=== PATIENT | female | born 1975 | race Caucasian/White ===

== ENCOUNTER 2016-10-09 10:49 | Day surgery (SDC) | payer MEDICAID ==
[2016-10-09] MEDS ORDERED: Bupivacaine 0.5% 50 ML MDV ONE (10:52)
[2016-10-09] MEDS ORDERED: Lidocaine 1% with EPINEPHrine 1:100,000 50 ML MDV ONE (10:53)
[2016-10-09] MEDS ORDERED: Sodium Chloride 0.9% 1,000 ML IV SCH (11:15)
[2016-10-09] MEDS ORDERED: Propofol 200 MG/20 ML SDV ONE ×3 (12:28→12:44)
[2016-10-09] MEDS ORDERED: fentaNYL 100 MCG/2 ML SDV ONE (12:28)
[2016-10-09] MEDS ORDERED: Midazolam 1 MG/ML 2 ML SDV ONE (12:29)
[2016-10-09] MEDS ORDERED: fentaNYL 250 MCG/5 ML SDV ONE (12:32)
[2016-10-09] MEDS ORDERED: Acetaminophen/HYDROcodone 325-5 MG Tab PO ONE (14:00)
--- NOTE | 2016-10-09 14:44 | CR ---
OR [id number] Filter HISTORY: INSERTION OF CENTRAL VENOUS CATHETER FINDINGS: Fluoroscopy was provided during central line placement. 3 digital fluoroscopic spot images were obtained. Central venous catheter enters from a right subclavian approach. Tip is just enterin g the SVC. No complication can be seen on these images. IMPRESSION: Fluoroscopy during central line placement. The tip is just entering the superior vena ca va on images obtained.
[2016-10-09 15:02] VITALS: BP 116/72
--- NOTE | 2016-10-10 08:28 | OR ---
DATE OF PROCEDURE: 10/09/2016 PROCEDURE: Port-A-Cath placement, right subclavian vein. INDICATIONS: A 40-year-old female with known cancer requiring chemotherapy. Risks, benefits, alternatives, limitations including, but not limited to, infection, bleeding, and pneumothorax were explained to the patient. She wishes to proceed. PREOPERATIVE DIAGNOSIS: Carcinoma, breast. POSTOPERATIVE DIAGNOSIS: Carcinoma, breast. COMPLICATIONS: None. CIRCULAR KNIFE CUTTER MACHINE: None. ANESTHESIA: MAC. PROCEDURE IN DETAIL: The patient was placed in the supine position. The right chest was prepped and draped. Using a micropuncture kit, the right subclavian vein was accessed on approximately the 3rd pass. This was very lateral compared to the typical anatomical location. Nonetheless, the micropuncture kit was able to be used. This was then exchanged with a wire. Lidocaine was used to anesthetize the skin and a pocket would be created. The pocket was created in a standard fashion using Metzenbaum scissors. After this, the overlay sheath was then advanced on the wire. The tubing was then placed into the superior vena cava. This was then cut to length and attached to the PowerPort. This was then sutured in with multiple 3-0 Vicryl's in interrupted fashion. At no point did the tubing or associated ports contact skin. The wound was then closed with 2 layers of 3-0 Vicryl and 4-0 Vicryl in interrupted running fashion. A Whitaker needle was used to retest the port which was functioning well. Dermabond was applied. Of note, this port is ready to use in the .. Vineet Crane MD /[id number]
== END 2016-10-09 15:06 | disposition home or self-care (01) ==
LOC: JP.SDS 10:49
PROVIDERS: ATTEND Surgery
DX: Z51.11 Encounter for antineoplastic chemotherapy (principal); C50.112 Malignant neoplasm of central portion of left female breast
CPT/HCPCS: 36561; A9270; C1788; C1894; J1642; J2250; J2704; J3010; J7040

== ENCOUNTER 2016-10-16 07:13 | Day surgery (SDC) | payer MEDICAID ==
[~2016-10-16 07:13] MED LIST: Bupivacaine 0.5% 50 ML MDV ONE; Lidocaine 1% with EPINEPHrine 1:100,000 50 ML MDV ONE
[2016-10-16] MEDS ORDERED: Sodium Chloride 0.9% 1,000 ML IV SCH (07:30)
[2016-10-16] MEDS ORDERED: ceFAZolin 2 GM in Sodium Chloride 0.9% 50 ML IV ONE (08:00)
[2016-10-16] MEDS ORDERED: ceFAZolin 2 GM in Premix Bag 1 BAG IV ONE (08:00)
[2016-10-16] MEDS ORDERED: fentaNYL 100 MCG/2 ML SDV ONE (08:19)
[2016-10-16] MEDS ORDERED: Propofol 200 MG/20 ML SDV ONE ×2 (08:19→08:32)
[2016-10-16] MEDS ORDERED: Midazolam 1 MG/ML 2 ML SDV ONE (08:19)
[2016-10-16] MEDS ORDERED: Ondansetron 4 MG/2 ML SDV ONE (08:48)
[2016-10-16 10:10] VITALS: BP 120/77
--- NOTE | 2016-10-17 08:23 | OR ---
DATE OF PROCEDURE: 10/16/2016 PROCEDURE PERFORMED: Biopsy of left axillary lymph node suspicious for malignancy, ultrasound-guided vacuum-assisted. COMPLICATIONS: None. CORDWOOD CUTTER HELPER: None. ANESTHESIA: MAC/local. INDICATIONS: A 41-year-old female requiring evaluation of concerning lymph node related to a breast malignancy. Risks, benefits, alternatives, and limitations including, but not limited to infection, bleeding, false-positives, false-negatives, and requirement for re- biopsy were explained to the patient, and they wished to proceed. Of note, due to the patient's significant anxiety issues, the patient underwent MAC anesthesia, as she would be unable to remain still for the typical ultrasound-guided biopsy. PATHOLOGY: 14-gauge ultrasound-guided core biopsies of the 2-cm lymph node of concern. DESCRIPTION OF PROCEDURE: The patient was placed in right lateral decubitus position. Using the previous Port-A-Cath, the patient was anesthetized, prepped and draped. The concerning lymph node was readily identified by the engineering specialist technician. The skin was anesthetized with lidocaine and a darshana was created in the skin. The tract was then further anesthetized with the 1% lidocaine. Once this was anesthetized, the 14-gauge ultrasound- guided breast biopsy gun was introduced, and the node was biopsied directly in the middle. Multiple images were taken of this. The specimen was removed, and there was felt to be a good core. This was repeated a second time. After this, a clip was placed into the lymph node. Of note, there were no other enlarged lymph nodes on ultrasound. Direct pressure was held for 5 minutes and Dermabond was applied. The patient tolerated the procedure well. Vineet Crane MD /[id number]
== END 2016-10-16 10:30 | disposition home or self-care (01) ==
LOC: JP.SDS 07:13
PROVIDERS: ATTEND Surgery
DX: N63 Unspecified lump in breast (principal)
CPT/HCPCS: 19083; 76998; J0690; J1642; J2250; J2405; J2704; J3010; J7040; J7050; 88305; 88342

== ENCOUNTER 2016-11-27 16:11 | Inpatient (IN) | payer MEDICAID ==
[2016-11-27] MEDS ORDERED: LORazepam 2 MG/ML MDV IVPUSH ONE (19:42)
[2016-11-27] MEDS ORDERED: Ketorolac 30 MG/ML SDV IVPUSH ONE (19:45)
--- NOTE | 2016-11-27 19:53 | EDM.PDOC ---
ED HPI GENERAL MEDICAL PROBLEM - General Chief Complaint: General Stated Complaint: BLOOD INFECTION Time Seen by Provider: 11/27/16 17:37 Source of Information: Reports: Patient History Limitations: Reports: No Limitations - History of Present Illness INITIAL COMMENTS - FREE TEXT/NARRATIVE: This lady was seen in clinic in [place] in follow-up for breast cancer. She complained of chills and sweats feeling dizzy yesterday. She thought maybe she might of had some heat stroke symptoms yesterday it's been 2 weeks since her last dose of chemotherapy. She's had 3 rounds she's supposed to have her fourth round tomorrow. She denied vomiting or diarrhea. She does have a cough. She had a sore throat a few days ago. She had a fever in clinic. The doctor did blood cultures on her and then sent her to the hospital for evaluation however he did not send any of the labs that were done. 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 Psychiatric History: Reports: Anxiety, Panic Attack Endocrine/Metabolic History: Reports: Obesity/BMI 30+ Oncologic (Cancer) History: Reports: Breast - Past Surgical History HEENT Surgical History: Reports: Other (See Below) Other HEENT Surgeries/Procedures: Lazy eye surgery Endocrine Surgical History: Reports: None Musculoskeletal Surgical History: Reports: None Oncologic Surgical History: Reports: Biopsy of Breast Social & Family History - Tobacco Use Smoking Status *Q: Never Smoker Years of Tobacco use: 20 Packs/Tins Daily: 1 Second Hand Smoke Exposure: No - Caffeine Use Caffeine Use: Reports: Coffee - Alcohol Use Days Per Week of Alcohol Use: 2 Number of Drinks Per Day: 3 Total Drinks Per Week: 6 - Recreational Drug Use Recreational Drug Use: No ED ROS GENERAL - Review of Systems Review Of Systems: See Below Constitutional: Reports: Fever, Chills HEENT: Reports: Throat Pain Respiratory: Reports: Cough Cardiovascular: Reports: No Symptoms Endocrine: Reports: No Symptoms GI/Abdominal: Reports: No Symptoms : Reports: No Symptoms ED EXAM, GENERAL - Physical Exam Exam: See Below Exam Limited By: No Limitations General Appearance: Alert, WD/WN Eye Exam: Bilateral Eye: Normal Inspection Ears: Normal TMs (Partially visible TMs are normal) Nose: Normal Inspection Throat/Mouth: Normal Inspection Head: Atraumatic Neck: Normal Inspection Respiratory/Chest: Lungs Clear, Other Cardiovascular: Normal Peripheral Pulses, Regular Rate, Rhythm (She has a Port-A -Cath in the right upper chest), No Murmur GI/Abdominal: Soft, Non-Tender Back Exam: Normal Inspection Extremities: Normal Inspection Neurological: Alert, Oriented Psychiatric: Normal Affect Skin Exam: Warm, Dry Course - Vital Signs Last Recorded V/S: Last Vital Signs Temp 38.1 C 11/27/16 16:29 Pulse 138 H 11/27/16 16:29 Resp 14 11/27/16 16:29 BP 118/72 11/27/16 16:29 Pulse Ox 97 11/27/16 16:29 - Orders/Labs/Meds Orders: Active Orders 24 hr Category Date Time Status Chest 2V [CR] Urgent Exams 11/27/16 17:38 Taken CULTURE STREP A CONFIRMATION [] Stat Lab 11/27/16 19:13 Results STREP SCRN A RAPID W CULT CONF [] Stat Lab 11/27/16 19:13 Results Sodium Chloride 0.9% [Normal Saline] 1,000 ml Med 11/27/16 19:45 Active IV ASDIRECTED Medication Orders Sodium Chloride (Normal Saline) 1,000 mls @ 125 mls/hr IV ASDIRECTED CY Labs: Laboratory Tests 11/27/16 11/27/16 11/27/16 Range/Units 17:38 17:38 17:38 WBC 8.0 (4.5-11.0) K/uL RBC 2.87 L (3.30-5.50) M/uL Hgb 8.8 L (12.0-15.0) g/dL Hct 26.2 L (36.0-48.0) % MCV 91 (80-98) fL MCH 31 (27-31) pg MCHC 34 (32-36) % Plt Count 200 (150-400) K/uL Add Manual Diff Yes Neutrophils % (Manual) 49 (36-66) % Band Neutrophils % 25 H (5-11) % Lymphocytes % (Manual) 12 L (24-44) % Monocytes % (Manual) 10 H (2-6) % Basophils % (Manual) 1 (0-1) % Blast Cells % 2 % Sodium 133 L (140-148) mmol/L Potassium 3.9 (3.6-5.2) mmol/L Chloride 98 L (100-108) mmol/L Carbon Dioxide 28 (21-32) mmol/L Anion Gap 10.9 (5.0-14.0) mmol/L BUN 10 (7-18) mg/dL Creatinine 0.9 (0.6-1.0) mg/dL Est Cr Clr Drug Dosing 84.66 mL/min Estimated GFR (MDRD) > 60 (>60) Glucose 104 (74-106) mg/dL Lactic Acid 0.9 (0.4-2.0) mmol/L Calcium 9.0 (8.5-10.1) mg/dL Total Bilirubin 0.4 (0.2-1.0) mg/dL AST 28 (15-37) U/L ALT 33 (12-78) U/L Alkaline Phosphatase 42 L (46-116) U/L Total Protein 7.1 (6.4-8.2) g/dL Albumin 3.0 L (3.4-5.0) g/dL Globulin 4.1 H (2.3-3.5) g/dL Albumin/Globulin Ratio 0.7 L (1.2-2.2) Urine Color Urine Appearance Urine pH (4.5-8.0) Ur Specific [place] (1.008-1.030) Urine Protein (NEGATIVE) mg/dL Urine Glucose (UA) (NEGATIVE) mg/dL Urine Ketones (NEGATIVE) mg/dL Urine Occult Blood (NEGATIVE) Urine Nitrite (NEGATIVE) Urine Bilirubin (NEGATIVE) Urine Urobilinogen (NORMAL) mg/dL Ur Leukocyte Esterase (NEGATIVE) Urine RBC (0-5) Urine WBC (0-5) Ur Epithelial Cells Amorphous Sediment Urine Bacteria Urine Mucus 11/27/16 Range/Units 19:13 WBC (4.5-11.0) K/uL RBC (3.30-5.50) M/uL Hgb (12.0-15.0) g/dL Hct (36.0-48.0) % MCV (80-98) fL MCH (27-31) pg MCHC (32-36) % Plt Count (150-400) K/uL Add Manual Diff Neutrophils % (Manual) (36-66) % Band Neutrophils % (5-11) % Lymphocytes % (Manual) (24-44) % Monocytes % (Manual) (2-6) % Basophils % (Manual) (0-1) % Blast Cells % % Sodium (140-148) mmol/L Potassium (3.6-5.2) mmol/L Chloride (100-108) mmol/L Carbon Dioxide (21-32) mmol/L Anion Gap (5.0-14.0) mmol/L BUN (7-18) mg/dL Creatinine (0.6-1.0) mg/dL Est Cr Clr Drug Dosing mL/min Estimated GFR (MDRD) (>60) Glucose (74-106) mg/dL Lactic Acid (0.4-2.0) mmol/L Calcium (8.5-10.1) mg/dL Total Bilirubin (0.2-1.0) mg/dL AST (15-37) U/L ALT (12-78) U/L Alkaline Phosphatase (46-116) U/L Total Protein (6.4-8.2) g/dL Albumin (3.4-5.0) g/dL Globulin (2.3-3.5) g/dL Albumin/Globulin Ratio (1.2-2.2) Urine Color Yellow Urine Appearance Cloudy Urine pH 5.0 (4.5-8.0) Ur Specific [place] 1.020 (1.008-1.030) Urine Protein Negative (NEGATIVE) mg/dL Urine Glucose (UA) Normal (NEGATIVE) mg/dL Urine Ketones Negative (NEGATIVE) mg/dL Urine Occult Blood Negative (NEGATIVE) Urine Nitrite Negative (NEGATIVE) Urine Bilirubin Negative (NEGATIVE) Urine Urobilinogen Normal (NORMAL) mg/dL Ur Leukocyte Esterase Negative (NEGATIVE) Urine RBC 0-5 (0-5) Urine WBC 0-5 (0-5) Ur Epithelial Cells Few Amorphous Sediment Not seen Urine Bacteria Many Urine Mucus Not seen Meds: Medications Generic Name Dose Route Start Last Admin Trade Name Freq PRN Reason Stop Dose Admin Sodium Chloride 1,000 mls @ 125 mls/hr 11/27/16 19:45 Normal Saline IV ASDIRECTED CY Discontinued Medications Generic Name Dose Route Start Last Admin Trade Name Jewels PRN Reason Stop Dose Admin Ketorolac Tromethamine 30 mg 11/27/16 19:45 Toradol IVPUSH 11/27/16 19:46 ONETIME ONE Lorazepam 1 mg 11/27/16 19:42 Ativan IVPUSH 11/27/16 19:43 ONETIME ONE - Radiology Interpretation Free Text/Narrative:: Chest x-ray showed no evidence of infiltrate Departure - Departure Time of Disposition: 19:52 Disposition: Admitted As Inpatient 68 Condition: Fair Clinical Impression: Fever - Discharge Information Forms: ED Department Discharge - My Orders Last 24 Hours: My Active Orders 11/27/16 17:38 Chest 2V [CR] Urgent 11/27/16 19:13 CULTURE STREP A CONFIRMATION [RM] Stat STREP SCRN A RAPID W CULT CONF [RM] Stat - Assessment/Plan Last 24 Hours: My Active Orders 11/27/16 17:38 Chest 2V [CR] Urgent 11/27/16 19:13 CULTURE STREP A CONFIRMATION [RM] Stat STREP SCRN A RAPID W CULT CONF [RM] Stat
[2016-11-27] MEDS: Sodium Chloride 0.9% 1,000 ML IV SCH (20:12)
[2016-11-27] MEDS ORDERED: Azithromycin 500 MG in Sodium Chloride 0.9% 250 ML IV SCH (20:44)
[2016-11-27] MEDS ORDERED: Morphine 2 MG/ML Syringe IVPUSH PRN (20:44)
[2016-11-27] MEDS ORDERED: LORazepam 2 MG/ML MDV IV PRN (20:44)
[2016-11-27] MEDS ORDERED: cefTRIAXone 1 GM in Sodium Chloride 0.9% 50 ML IV SCH (20:44)
[2016-11-27] MEDS ORDERED: Zolpidem 5 MG Tab PO PRN (20:44)
[2016-11-27] MEDS ORDERED: Albuterol 0.083% 2.5 MG/3 ML Neb Soln NEB PRN (20:44)
[2016-11-27] MEDS ORDERED: Acetaminophen 325 MG Tab PO PRN (20:44)
[2016-11-27] MEDS ORDERED: oxyCODONE 5 MG Tab PO PRN (20:44)
[2016-11-27] MEDS ORDERED: Codeine/guaiFENesin 100mg-10 MG/5 ML Syrup 10 ML Cup PO PRN (20:44)
[2016-11-27] MEDS ORDERED: LORazepam 2 MG/ML MDV IVPUSH PRN (20:44)
[2016-11-27] MEDS ORDERED: Bisacodyl 5 MG Tab PO PRN (20:44)
[2016-11-27] MEDS ORDERED: Albuterol/Ipratropium 3.0-0.5 MG/3 ML Neb Soln NEB PRN (20:44)
[2016-11-27] MEDS ORDERED: Ondansetron 4 MG Tab.DIS PO PRN (20:44)
[2016-11-27] MEDS ORDERED: Docusate Sodium 100 MG Cap PO PRN (20:44)
[2016-11-27] MEDS ORDERED: Dexamethasone 4 MG Tab PO SCH (21:00)
[2016-11-27] MEDS: Calcium Carbonate 500 MG Tab.Chew PO PRN (22:55)
--- NOTE | 2016-11-27 23:44 | PCM.HP ---
H&P History of Present Illness - General Date of Service: 11/27/16 Admit Problem/Dx: Admission Diagnosis/Problem Admission Diagnosis/Problem Cough Source of Information: Patient, Family () History Limitations: Reports: No Limitations - History of Present Illness Initial Comments - Free Text/Narative: Fever; This lady was seen in clinic in [place] in follow-up for breast cancer. She complained of chills and sweats feeling dizzy yesterday. She thought maybe she might of had some heat stroke symptoms yesterday it's been 2 weeks since her last dose of chemotherapy. She's had 3 rounds she's supposed to have her fourth round tomorrow. She denied vomiting or diarrhea. She does have a cough. She had a sore throat a few days ago. She had a fever in clinic. The doctor did blood cultures on her and then sent her to the hospital for evaluation however he did not send any of the labs that were done. Onset of Symptoms: Reports: Gradual Duration of Symptoms: Reports: Day(s):, Getting Worse Location: Reports: Generalized Quality: Reports: Sharp, Throbbing Severity: Moderate Improves with: Reports: Medication Worsens with: Reports: None Context: Reports: Other (chemo therapy for breast cancer) Associated Symptoms: Reports: Cough, Fever/Chills, Nausea/Vomiting - Related Data Allergies/Adverse Reactions: Allergies Allergy/AdvReac Type Severity Reaction Status Date / Time No Known Allergies Allergy Verified 11/27/16 16:35 Home Medications: Home Meds Ibuprofen 200 mg PO Q6HR PRN 10/09/16 [History] Dexamethasone 8 mg PO BID 10/14/16 [History] Prochlorperazine Maleate [Compazine] 10 mg PO Q6H PRN 10/14/16 [History] Past Medical History HEENT History: Reports: Impaired Vision 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: , 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 Psychiatric History: Reports: Anxiety, Panic Attack Endocrine/Metabolic History: Reports: Obesity/BMI 30+ Oncologic (Cancer) History: Reports: Breast - Infectious Disease History Infectious Disease History: Reports: Chicken Pox - Past Surgical History HEENT Surgical History: Reports: Other (See Below) Other HEENT Surgeries/Procedures: Lazy eye surgery Endocrine Surgical History: Reports: None Musculoskeletal Surgical History: Reports: None Oncologic Surgical History: Reports: Biopsy of Breast Social & Family History - Tobacco Use Smoking Status *Q: Former Smoker Years of Tobacco use: 19 Packs/Tins Daily: 1 Used Tobacco, but Quit: Yes Month Tobacco Last Used: October Second Hand Smoke Exposure: No - Caffeine Use Caffeine Use: Reports: None - Alcohol Use Days Per Week of Alcohol Use: 2 Number of Drinks Per Day: 3 Total Drinks Per Week: 6 - Recreational Drug Use Recreational Drug Use: No - Living Situation & Occupation Living situation: Reports: Occupation: Disabled ( to [employer], no children , lives in [facility]) H&P Review of Systems - Review of Systems: Review Of Systems: See Below General: Reports: Fever, Chills, Malaise, Weakness, Fatigue, Decreased Appetite HEENT: Reports: No Symptoms, Sore Throat Pulmonary: Reports: Pleuritic Chest Pain, Cough Cardiovascular: Reports: No Symptoms Gastrointestinal: Reports: No Symptoms Genitourinary: Reports: No Symptoms Musculoskeletal: Reports: No Symptoms Skin: Reports: Pallor, Wound (left breast with resolving wound. 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) Psychiatric: Reports: Anxiety Neurological: Reports: Headache, Weakness Hematologic/Lymphatic: Reports: No Symptoms Immunologic: Reports: No Symptoms Exam - Exam Exam: See Below - Vital Signs Vital Signs: Last Vital Signs Temp 38.1 C 11/27/16 21:31 Pulse 118 H 11/27/16 21:31 Resp 16 11/27/16 21:31 BP 111/56 L 11/27/16 21:31 Pulse Ox 94 L 11/27/16 21:31 Weight: 94.347 kg - Exam General: Alert, Oriented, Cooperative, Mild Distress, Other (hair loss noted) HEENT: PERRLA, Conjunctiva Clear, EACs Clear, EOMI, Hearing Intact, Mucosa Moist & [place], Nares Patent, Normal Nasal Septum, Posterior Pharynx Clear, Pupils Equal, Pupils Reactive, TMs Clear Neck: Supple, Trachea Midline Lungs: Clear to Auscultation, Normal Respiratory Effort Cardiovascular: Regular Rate, Regular Rhythm Abdomen: Normal Bowel Sounds, Soft (Female) Exam: Deferred Rectal (Female) Exam: Deferred Back Exam: Normal Inspection, Full Range of Motion, NT Extremities: 3, Normal Inspection, 10 Peripheral Pulses: 2+: Radial (L), Radial (R), Posterior Tibial (L), Posterior Tibial (R) Skin: Warm, Dry, Wound (left breast with resolving wound, +foul odor, scant discharge), Other (pallor) Neurological: Cranial Nerves Intact, Reflexes Equal Bilateral, Strength Equal Bilateral Neuro Extensive - Mental Status: Alert, Oriented x3, Normal Mood/Affect, Normal Cognition, Memory Intact Neuro Extensive - Motor, Sensory, Reflexes: CN II-XII Intact, Normal Gait, Normal Reflexes Psychiatric: Alert, Normal Affect, Normal Mood, Labile Mood, Anxious - Patient Data Result Diagrams: 11/27/16 17:38 11/27/16 17:38 *Q Meaningful Use (ADM) - VTE *Q VTE Criteria *Q: - Stroke *Q Stroke Criteria *Q: - AMI *Q AMI Criteria *Q: - Problem List (1) Fever SNOMED Code(s): 669413213 ICD Code: R50.9 - FEVER, UNSPECIFIED Status: Acute Priority: High Current Visit: Yes Qualifiers: Fever type: due to other condition Qualified Code(s): R50.81 - Fever presenting with conditions classified elsewhere (2) Headache SNOMED Code(s): 21159184 ICD Code: R51 - HEADACHE Status: Acute Priority: High Current Visit: Yes Qualifiers: Headache type: tension-type Headache chronicity pattern: acute headache Intractability: not intractable Qualified Code(s): G44.209 - Tension-type headache, unspecified, not intractable Problem List Initiated/Reviewed/Updated: Yes Orders Last 24hrs: Active Orders 24 hr Category Date Time Status Patient Status [ADT] Routine ADT 11/27/16 20:44 Active Dressing Change [Wound Care] [RC] Q12H Care 11/27/16 20:44 Active Intake and Output [RC] QSHIFT Care 11/27/16 20:44 Active Notify Provider Consults [RC] ASDIRECTED Care 11/27/16 20:44 Active Notify Provider Vital Signs [RC] ASDIRECTED Care 11/27/16 20:44 Active Oxygen Therapy [RC] PRN Care 11/27/16 20:44 Active RT Aerosol Therapy [RC] ASDIRECTED Care 11/27/16 20:44 Active Up ad Randi [RC] ASDIRECTED Care 11/27/16 20:44 Active VTE/DVT Education [RC] Per Unit Routine Care 11/27/16 20:44 Active Vital Signs [RC] Q4H Care 11/27/16 20:44 Active Consult to Physician [CONS] Routine Cons 11/27/16 20:44 Ordered OT Evaluation and Treatment [CONS] Routine Cons 11/27/16 20:44 Active Regular Diet [DIET] Diet 11/27/16 Dinner Active BASIC METABOLIC PANEL,BMP [CHEM] AM Lab 11/28/16 05:11 Ordered C-REACTIVE PROTEIN [CHEM] AM Lab 11/28/16 05:11 Ordered CBC WITH AUTO DIFF [HEME] AM Lab 11/28/16 05:11 Ordered Acetaminophen [Tylenol] Med 11/27/16 20:44 Active 650 mg PO Q4H PRN Albuterol [Proventil Neb Soln] Med 11/27/16 20:44 Active 2.5 mg NEB Q4H PRN Albuterol/Ipratropium [DuoNeb 3.0-0.5 MG/3 ML] Med 11/27/16 20:44 Active 3 ml NEB QID PRN Azithromycin [Zithromax] 500 mg Med 11/27/16 20:44 Active Sodium Chloride 0.9% [Normal Saline] 250 ml IV Q24H Bisacodyl [Dulcolax] Med 11/27/16 20:44 Active 5 mg PO DAILY PRN Calcium Carbonate [Tums] Med 11/27/16 22:40 Active 1,000 mg PO Q2H PRN Codeine/guaiFENesin [Robitussin AC] Med 11/27/16 20:44 Active 10 ml PO Q4H PRN Dexamethasone Med 11/27/16 21:00 Active 8 mg PO BID Docusate Sodium [Colace] Med 11/27/16 20:44 Active 100 mg PO BID PRN LORazepam [Ativan] Med 11/27/16 20:44 Active 1 mg IV Q6H PRN LORazepam [Ativan] Med 11/27/16 20:44 Active See Dose Instructions IVPUSH Q4H PRN Morphine Med 11/27/16 20:44 Active 2 mg IVPUSH Q2H PRN Ondansetron [Zofran ODT] Med 11/27/16 20:44 Active 4 mg PO Q6H PRN Pantoprazole [ProTONIX IV] Med 11/28/16 09:00 Active 40 mg IVPUSH DAILY Zolpidem [Ambien] Med 11/27/16 20:44 Active 5 mg PO BEDTIME PRN cefTRIAXone [Rocephin] 1 gm Med 11/27/16 20:44 Active Sodium Chloride 0.9% [Normal Saline] 50 ml IV Q24H oxyCODONE Med 11/27/16 20:44 Active 5 mg PO Q4H PRN Sequential Compression Device [OM.PC] Per Unit Routine Oth 11/27/16 20:44 Ordered Resuscitation Status Routine Resus Stat 11/27/16 19:52 Ordered Medication Orders Acetaminophen (Tylenol) 650 mg PO Q4H PRN PRN Reason: Pain (Mild 1-3)/fever Albuterol (Proventil Neb Soln) 2.5 mg NEB Q4H PRN PRN Reason: Shortness Of Breath/wheezing Albuterol/Ipratropium (Duoneb 3.0-0.5 Mg/3 Ml) 3 ml NEB QID PRN PRN Reason: Shortness Of Breath/wheezing Bisacodyl (Dulcolax) 5 mg PO DAILY PRN PRN Reason: Constipation Calcium Carbonate/Glycine (Tums) 1,000 mg PO Q2H PRN PRN Reason: Indigestion Last Admin: 11/27/16 22:55 Dose: 1,000 mg Dexamethasone (Dexamethasone) 8 mg PO BID [facility] Last Admin: 11/27/16 21:41 Dose: 8 mg Docusate Sodium (Colace) 100 mg PO BID PRN PRN Reason: Constipation Guaifenesin/Codeine Phosphate (Robitussin Ac) 10 ml PO Q4H PRN PRN Reason: Cough Last Admin: 11/27/16 22:55 Dose: 10 ml Sodium Chloride (Normal Saline) 1,000 mls @ 125 mls/hr IV ASDIRECTED [facility] Last Admin: 11/27/16 20:12 Dose: 125 mls/hr Azithromycin 500 mg/ Sodium (Chloride) 250 mls @ 250 mls/hr IV Q24H [facility] Last Admin: 11/27/16 22:18 Dose: 250 mls/hr Ceftriaxone Sodium 1 gm/ (Sodium Chloride) 50 mls @ 100 mls/hr IV Q24H [facility] Last Admin: 11/27/16 21:41 Dose: 100 mls/hr Lorazepam (Ativan) 1 mg IV Q6H PRN PRN Reason: Nausea/Vomiting Lorazepam (Ativan) 0 mg IVPUSH Q4H PRN PRN Reason: Anxiety Morphine Sulfate (Morphine) 2 mg IVPUSH Q2H PRN PRN Reason: Pain (severe 7-10) Ondansetron HCl (Zofran Odt) 4 mg PO Q6H PRN PRN Reason: Nausea able to take PO Oxycodone HCl (Oxycodone) 5 mg PO Q4H PRN PRN Reason: Pain (moderate 4-6) Pantoprazole Sodium (Protonix Iv) 40 mg IVPUSH DAILY CY Zolpidem Tartrate (Ambien) 5 mg PO BEDTIME PRN PRN Reason: Sleep Assessment/Plan Comment:: ASSESSMENT / PLAN -Fever; This lady was seen in clinic in [place] in follow-up for breast cancer. She complained of chills and sweats feeling dizzy yesterday. She thought maybe she might of had some heat stroke symptoms yesterday it's been 2 weeks since her last dose of chemotherapy. She's had 3 rounds she's supposed to have her fourth round tomorrow. She denied vomiting or diarrhea. She does have a cough. She had a sore throat a few days ago. She had a fever in clinic. The doctor did blood cultures on her and then sent her to the hospital for evaluation however he did not send any of the labs that were done. Plan cough with fever breast cancer with wound to left breast -Admit to [address] [place] [address] for further monitoring -IV Fluids for rehydration NS at 125 mL per hour -IV Antibiotic; Rocephin 1 gram IV every 24 hours -IV Zithromax 500mg every 24 hours -Advise to notify nurses of any chest pain or other symptoms -blood cultures x2 pending -And a.m. labs: CBC, BMP, lactic acid -consult with Dr. Crane, he will see in am betwee time of 0800 to 0900 headache -Toradol 30mg iv -ativan 1mg iv -IV fluids started Maintenance issues -Orders home meds: -Nutrition: consistent diet -Keane catheter not indicated at this time -DVT: SCD -PPI; IV Protonix 40mg daily CODE STATUS:FULL Admission status: Admit to [address] [place] [address] Admission justification. This patient will be admitted for inpatient services and is medically appropriate meeting medical necessity for inpatient admission as outlined in my documentation. I reasonably expect the patient will require inpatient services that span. Time over 2 midnights. I reasonably expect this patient to be discharged or transferred within 96 hours after admission to the critical access hospital. Disposition; home Primary Care: Niki Dent, Hematology/Onocology Hospitalist: Dr. Maria
[2016-11-28] MEDS: Sodium Chloride 0.9% 1,000 ML IV SCH (05:33)
[2016-11-28] MEDS: Dexamethasone 4 MG Tab PO SCH ×2 (08:23→17:01)
[2016-11-28] MEDS ORDERED: Pantoprazole 40 MG Vial IVPUSH SCH (09:00)
--- NOTE | 2016-11-28 09:22 | CR ---
Chest 2V HISTORY: No Clinical Info FINDINGS: Heart size within normal limits. Pulmonary vasculature within normal limits. No evidence f or focal consolidation or cardiopulmonary process. Right subclavian catheter at mid SVC level. IMPRESSION: No radiographic evidence for acute cardiopulmonary process.
--- NOTE | 2016-11-28 12:55 | PCM.PN ---
- General Info Date of Service: 11/28/16 Functional Status: Reports: pain controlled, tolerating diet, ambulating - Review of Systems General: Denies: Fever Pulmonary: Denies: cough Gastrointestinal: Denies: Abdominal pain Systems Review Comment:: No acute events overnight. No fevers or abdominal pain. Cough has resolved. Patient feels well at this time. Tolerating diet. Blood cultures negative at 24 hours. - Patient Data Vitals - most recent: Last Vital Signs Temp 36.6 C 11/28/16 11:00 Pulse 105 H 11/28/16 11:00 Resp 18 11/28/16 11:00 BP 115/65 11/28/16 11:00 Pulse Ox 96 11/28/16 11:00 Weight - most recent: 94.347 kg I&O - last 24 hours: Intake & Output 11/27/16 11/28/16 11/28/16 22:59 06:59 14:59 Intake Total 885 Output Total 1275 Balance -390 Lab Results last 24 hrs: Laboratory Results - last 24 hr 11/28/16 11/28/16 Range/Units 05:51 05:51 WBC 6.5 (4.5-11.0) K/uL RBC 2.81 L (3.30-5.50) M/uL Hgb 8.6 L (12.0-15.0) g/dL Hct 25.9 L (36.0-48.0) % MCV 92 (80-98) fL MCH 31 (27-31) pg MCHC 33 (32-36) % Plt Count 212 (150-400) K/uL Add Manual Diff Yes Neutrophils % (Manual) 75 H (36-66) % Band Neutrophils % 14 H (5-11) % Lymphocytes % (Manual) 6 L (24-44) % Monocytes % (Manual) 3 (2-6) % Metamyelocytes % 2 % Sodium 138 L (140-148) mmol/L Potassium 4.3 (3.6-5.2) mmol/L Chloride 104 (100-108) mmol/L Carbon Dioxide 26 (21-32) mmol/L Anion Gap 12.3 (5.0-14.0) mmol/L BUN 12 (7-18) mg/dL Creatinine 0.9 (0.6-1.0) mg/dL Est Cr Clr Drug Dosing 84.66 mL/min Estimated GFR (MDRD) > 60 (>60) Glucose 160 H (74-106) mg/dL Calcium 9.1 (8.5-10.1) mg/dL C-Reactive Protein 2.29 H (0.0-0.3) mg/dL Med Orders - Current: Current Medications Acetaminophen (Tylenol) 650 mg PO Q4H PRN PRN Reason: Pain (Mild 1-3)/fever Albuterol (Proventil Neb Soln) 2.5 mg NEB Q4H PRN PRN Reason: Shortness Of Breath/wheezing Albuterol/Ipratropium (Duoneb 3.0-0.5 Mg/3 Ml) 3 ml NEB QID PRN PRN Reason: Shortness Of Breath/wheezing Bisacodyl (Dulcolax) 5 mg PO DAILY PRN PRN Reason: Constipation Calcium Carbonate/Glycine (Tums) 1,000 mg PO Q2H PRN PRN Reason: Indigestion Last Admin: 11/27/16 22:55 Dose: 1,000 mg Dexamethasone (Dexamethasone) 8 mg PO BIDMEALS [facility] Last Admin: 11/28/16 08:23 Dose: 8 mg Docusate Sodium (Colace) 100 mg PO BID PRN PRN Reason: Constipation Guaifenesin/Codeine Phosphate (Robitussin Ac) 10 ml PO Q4H PRN PRN Reason: Cough Last Admin: 11/27/16 22:55 Dose: 10 ml Sodium Chloride (Normal Saline) 1,000 mls @ 125 mls/hr IV ASDIRECTED [facility] Last Admin: 11/28/16 05:33 Dose: 125 mls/hr Azithromycin 500 mg/ Sodium (Chloride) 250 mls @ 250 mls/hr IV Q24H [facility] Ceftriaxone Sodium 1 gm/ (Sodium Chloride) 50 mls @ 100 mls/hr IV Q24H [facility] Lorazepam (Ativan) 1 mg IV Q6H PRN PRN Reason: Nausea/Vomiting Lorazepam (Ativan) 0 mg IVPUSH Q4H PRN PRN Reason: Anxiety Morphine Sulfate (Morphine) 2 mg IVPUSH Q2H PRN PRN Reason: Pain (severe 7-10) Ondansetron HCl (Zofran Odt) 4 mg PO Q6H PRN PRN Reason: Nausea able to take PO Oxycodone HCl (Oxycodone) 5 mg PO Q4H PRN PRN Reason: Pain (moderate 4-6) Pantoprazole Sodium (Protonix Iv) 40 mg IVPUSH DAILY [facility] Last Admin: 11/28/16 08:24 Dose: 40 mg Zolpidem Tartrate (Ambien) 5 mg PO BEDTIME PRN PRN Reason: Sleep Discontinued Medications Dexamethasone (Dexamethasone) 8 mg PO BID [facility] Last Admin: 11/27/16 21:41 Dose: 8 mg Azithromycin 500 mg/ Sodium (Chloride) 250 mls @ 250 mls/hr IV Q24H [facility] Last Admin: 11/27/16 22:18 Dose: 250 mls/hr Ceftriaxone Sodium 1 gm/ (Sodium Chloride) 50 mls @ 100 mls/hr IV Q24H [facility] Last Admin: 11/27/16 21:41 Dose: 100 mls/hr Ketorolac Tromethamine (Toradol) 30 mg IVPUSH ONETIME ONE Stop: 11/27/16 19:46 Last Admin: 11/27/16 20:17 Dose: 30 mg Lorazepam (Ativan) 1 mg IVPUSH ONETIME ONE Stop: 11/27/16 19:43 Last Admin: 11/27/16 20:20 Dose: 1 mg - Exam Quality Assessment: No: supplemental oxygen General: alert, oriented, cooperative, no acute distress Neck: supple Lungs: Clear to auscultation, Normal respiratory effort Cardiovascular: Regular Rate, Regular Rhythm Abdomen: bowel sounds present, soft, no tenderness, no distension Extremities: no edema, no cyanosis Skin: warm, dry Psy/Mental Status: alert, normal affect - Problem List Review Problem List Initiated/Reviewed/Updated: Yes - My Orders Last 24 Hours: My Active Orders 11/28/16 12:53 Convert IV to Saline Lock [OM.PC] Routine 11/29/16 05:00 BASIC METABOLIC PANEL,BMP [CHEM] Timed CBC W/O DIFF,HEMOGRAM [HEME] Timed (1) - Plan Plan:: ASSESSMENT / PLAN Fever, presyncope - concern for occult infection yesterday. Workup so far has been unremarkable and the patient is doing quite well. Blood cultures are negative at 24 hours. She has no infectious symptoms at this time. White blood cell count is normal. Heart rate has normalized. No difficulties with ambulation. -Discontinue IV fluids -Continue antibiotics until tomorrow, discontinue if cultures are negative -Follow-up blood cultures tomorrow morning -Encourage oral intake Breast cancer with fungating left breast mass - she is currently due for additional chemotherapy but with concern for infection this will be on hold until next week. No evidence for infection. -Outpatient follow-up Maintenance issues -Orders home meds: -Nutrition: consistent diet -Keane catheter not indicated at this time -DVT: SCD -GI: PPI Disposition - anticipate discharge to home with family tomorrow Vaibhav Maria M.D.
--- NOTE | 2016-11-28 14:21 | CONS ---
DATE OF SERVICE: 11/28/2016 REFERRING PHYSICIAN: CONSULTING PHYSICIAN: Vineet Crane MD REASON FOR CONSULTATION: Evaluation of left breast wound. HISTORY OF PRESENT ILLNESS: A pleasant 41-year-old female, who is undergoing chemotherapy due to advanced breast cancer. The patient was seen and was noted to have a fever, and there was concern for sepsis and/or wound infection possibly complicated by pneumonia. PAST SURGICAL HISTORY: Left breast biopsy. PAST MEDICAL HISTORY: 1. Adenocarcinoma, left breast. 2. Depression. SOCIAL HISTORY: She is . FAMILY HISTORY: Noncontributory. REVIEW OF SYSTEMS: GENERAL: The patient is doing quite well. HEENT: No symptoms. CARDIOVASCULAR: No history of myocardial infarction. RESPIRATORY: No current shortness of breath. GI: No symptoms. NEUROLOGICAL: No symptoms. PSYCH: No symptoms. The remainder review of systems is reviewed and is negative. PHYSICAL EXAMINATION: VITAL SIGNS: Stable. GENERAL: The patient is appropriate for her condition. HEENT: Pupils are equal. NECK: Supple. LUNGS: Clear. CARDIOVASCULAR: Regular rhythm and rate. BREASTS: Unchanged. SKIN: Shows a significantly improved wound compared to previous visits. No signs of active infection. EXTREMITIES: Full range of motion. NEUROLOGICAL: Oriented x3. PSYCH: No gross depression. ASSESSMENT AND PLAN: Breast wound. PLAN: This wound looks very good and healing quite well. There are no signs of cellulitis or infection. The drainage is minimal. The patient will undergo standard dressing changes with daily showers. Please see orders in the computer for further details. We discussed risks, benefits, alternatives. We also discussed the signs and symptoms of infection, and we asked the patient to follow up with me next week for ongoing evaluation and treatment. Vineet Crane MD /[id number]
[2016-11-28] MEDS ORDERED: cefTRIAXone 1 GM in Sodium Chloride 0.9% 50 ML IV SCH (21:00)
[2016-11-28] MEDS: Calcium Carbonate 500 MG Tab.Chew PO PRN (21:44)
[2016-11-28] MEDS ORDERED: Azithromycin 500 MG in Sodium Chloride 0.9% 250 ML IV SCH (22:00)
[2016-11-29] MEDS: Dexamethasone 4 MG Tab PO SCH (07:43)
[2016-11-29 10:34] VITALS: BP 117/67
--- NOTE | 2016-11-29 11:13 | PCM.DCSUM1 ---
Discharge Summary - Hospital Course Brief History: 41-year-old female with recent diagnosis of breast cancer, currently receiving chemotherapy who presented with fever and presyncope. She was admitted for workup and management. - Discharge Data Discharge Date: 11/29/16 Discharge Disposition: Home, Self-Care 01 Condition: Good - Discharge Diagnosis/Problem(s) (1) Acute bronchitis SNOMED Code(s): 40805055 ICD Code: J20.9 - ACUTE BRONCHITIS, UNSPECIFIED Status: Acute Current Visit: Yes Qualifiers: Bronchitis organism: unspecified organism Qualified Code(s): J20.9 - Acute bronchitis, unspecified (2) Breast cancer SNOMED Code(s): 520073768 ICD Code: C50.919 - MALIGNANT NEOPLASM OF UNSP SITE OF UNSPECIFIED FEMALE BREAST Status: Chronic Current Visit: Yes Qualifiers: Breast location: unspecified site of breast Estrogen receptor status: unspecified Patient sex: female Laterality: unspecified laterality Qualified Code(s): C50.919 - Malignant neoplasm of unspecified site of unspecified female breast - Patient Summary/Data Consults: Consultations 11/27/16 20:44 Consult to Physician [CONS] Routine Consulting Provider: Vineet Crane Call Completed to Consulting Physician: Yes: Charge Nurse to call Dr. Crane between 0800 and 0900 Reason for Consult: wound care Date Notified: 11/27/16 Time Notified: 19:30 Special Instructions: [address] [place] [address] Course: Sybil presented to the emergency room at the urging of her oncologist for evaluation of fever and presyncope. Workup in the emergency room was fairly reassuring with very normal laboratory studies other than a mild anemia. Urine did not suggest infection and chest x-ray was clear. There is no evidence for infection at the site of her breast cancer mass. She was tachycardic but otherwise stable. She was given IV fluids and she was started on ceftriaxone and azithromycin with some concern for an upper respiratory tract infection such as bronchitis. By the morning after admission her heart rate is normal and she feels well. Blood cultures were negative at 24 hours. I did encourage her to remain hospitalized one additional day given her recent chemotherapy and to allow the cultures more time to become positive if they were going to. On the day of discharge she has negative cultures and has been afebrile. She has been tolerating a regular diet with no difficulty. She feels well and has no significant symptoms. Her white blood cell count did rise slightly but otherwise she has been stable and doing well. I do believe she is safe for outpatient management at this time. We are going to complete a five-day course of azithromycin for bronchitis but no definitive evidence for infection has been found. She'll be following up with Dr. Crane to recheck her breast cancer wound/mass as well as with her oncologist in the next week. - Patient Instructions Diet: Regular Diet as Tolerated Activity: As Tolerated Showering/Bathing: May Shower Notify Provider of: Fever, Increased Pain, Nausea and/or Vomiting Other/Special Instructions: 1. You work in the hospital for management of fever and probable bronchitis. The cultures obtained at your clinic visit have not grown any bacteria. I do recommend that you complete a five-day course of azithromycin. You should take azithromycin 500 mg at bedtime for the next 3 nights. 2. Follow-up with Dr. Crane on December 04. 3. Follow-up with Dr. Diaz on December 05. 4. Please seek medical attention if you develop fever greater than 101, have sudden onset of shortness of breath, persistent vomiting or severe diarrhea. - Discharge Plan Prescriptions/Med Rec: Azithromycin 500 mg PO BEDTIME #3 tablet Home Medications: Home Meds Ibuprofen 200 mg PO Q6HR PRN 10/09/16 [History] Dexamethasone 8 mg PO BID 10/14/16 [History] Prochlorperazine Maleate [Compazine] 10 mg PO Q6H PRN 10/14/16 [History] Azithromycin 500 mg PO BEDTIME #3 tablet 11/29/16 [Rx] Patient Handouts: Nausea, Adult, Azithromycin tablets Referrals: PCP,None [Primary Care Provider] - 12/04/16 3:20 pm (Follow up with Dr. Crane next week 12/04/16 [address] Diaz at [facility] on 12/05 (1215 Chemo) and 110 Dr Diaz appt. ) - Discharge Summary/Plan Comment DC Time >30 min.: No (25) - Patient Data Vitals - Most Recent: Last Vital Signs Temp 36.4 C 11/29/16 10:33 Pulse 71 11/29/16 10:33 Resp 18 11/29/16 10:33 BP 117/67 11/29/16 10:33 Pulse Ox 97 11/29/16 07:00 Weight - Most Recent: 94.347 kg I&O - Last 24 hours: Intake & Output 11/28/16 11/29/16 11/29/16 22:59 06:59 14:59 Intake Total 300 240 Balance 300 240 Lab Results - Last 24 hrs: Laboratory Results - last 24 hr 11/29/16 11/29/16 Range/Units 05:09 05:09 WBC 13.1 H (4.5-11.0) K/uL RBC 2.59 L (3.30-5.50) M/uL Hgb 7.8 L (12.0-15.0) g/dL Hct 24.3 L (36.0-48.0) % MCV 94 (80-98) fL MCH 30 (27-31) pg MCHC 32 (32-36) % Plt Count 249 (150-400) K/uL Sodium 139 L (140-148) mmol/L Potassium 4.2 (3.6-5.2) mmol/L Chloride 104 (100-108) mmol/L Carbon Dioxide 27 (21-32) mmol/L Anion Gap 12.2 (5.0-14.0) mmol/L BUN 10 (7-18) mg/dL Creatinine 0.8 (0.6-1.0) mg/dL Est Cr Clr Drug Dosing 95.62 mL/min Estimated GFR (MDRD) > 60 (>60) Glucose 182 H (74-106) mg/dL Calcium 8.6 (8.5-10.1) mg/dL Med Orders - Current: Current Medications Acetaminophen (Tylenol) 650 mg PO Q4H PRN PRN Reason: Pain (Mild 1-3)/fever Albuterol (Proventil Neb Soln) 2.5 mg NEB Q4H PRN PRN Reason: Shortness Of Breath/wheezing Albuterol/Ipratropium (Duoneb 3.0-0.5 Mg/3 Ml) 3 ml NEB QID PRN PRN Reason: Shortness Of Breath/wheezing Bisacodyl (Dulcolax) 5 mg PO DAILY PRN PRN Reason: Constipation Calcium Carbonate/Glycine (Tums) 1,000 mg PO Q2H PRN PRN Reason: Indigestion Last Admin: 11/28/16 21:44 Dose: 1,000 mg Dexamethasone (Dexamethasone) 8 mg PO [facility]ALS [facility] Last Admin: 11/29/16 07:43 Dose: 8 mg Docusate Sodium (Colace) 100 mg PO BID PRN PRN Reason: Constipation Guaifenesin/Codeine Phosphate (Robitussin Ac) 10 ml PO Q4H PRN PRN Reason: Cough Last Admin: 11/27/16 22:55 Dose: 10 ml Heparin Sodium (Porcine) (Heparin Lock Flush 100 Units/Ml) 500 units FLUSH ASDIRECTED PRN PRN Reason: IV Use Last Admin: 11/28/16 23:12 Dose: 500 units Azithromycin 500 mg/ Sodium (Chloride) 250 mls @ 250 mls/hr IV Q24H [facility] Last Admin: 11/28/16 21:51 Dose: 250 mls/hr Ceftriaxone Sodium 1 gm/ (Sodium Chloride) 50 mls @ 100 mls/hr IV Q24H [facility] Last Admin: 11/28/16 21:04 Dose: 100 mls/hr Lorazepam (Ativan) 1 mg IV Q6H PRN PRN Reason: Nausea/Vomiting Lorazepam (Ativan) 0 mg IVPUSH Q4H PRN PRN Reason: Anxiety Last Admin: 11/28/16 13:52 Dose: 0.5 mg Morphine Sulfate (Morphine) 2 mg IVPUSH Q2H PRN PRN Reason: Pain (severe 7-10) Ondansetron HCl (Zofran Odt) 4 mg PO Q6H PRN PRN Reason: Nausea able to take PO Oxycodone HCl (Oxycodone) 5 mg PO Q4H PRN PRN Reason: Pain (moderate 4-6) Zolpidem Tartrate (Ambien) 5 mg PO BEDTIME PRN PRN Reason: Sleep Last Admin: 11/28/16 21:44 Dose: 5 mg Discontinued Medications Dexamethasone (Dexamethasone) 8 mg PO BID [facility] Last Admin: 11/27/16 21:41 Dose: 8 mg Heparin Sodium (Porcine) (Heparin Lock Flush 100 Units/Ml) Confirm Administered Dose 500 units .ROUTE .STK-MED ONE Stop: 11/28/16 13:47 Last Admin: 11/28/16 13:53 Dose: 500 units Sodium Chloride (Normal Saline) 1,000 mls @ 125 mls/hr IV ASDIRECTED [facility] Last Admin: 11/28/16 05:33 Dose: 125 mls/hr Azithromycin 500 mg/ Sodium (Chloride) 250 mls @ 250 mls/hr IV Q24H [facility] Last Admin: 11/27/16 22:18 Dose: 250 mls/hr Ceftriaxone Sodium 1 gm/ (Sodium Chloride) 50 mls @ 100 mls/hr IV Q24H [facility] Last Admin: 11/27/16 21:41 Dose: 100 mls/hr Ketorolac Tromethamine (Toradol) 30 mg IVPUSH ONETIME ONE Stop: 11/27/16 19:46 Last Admin: 11/27/16 20:17 Dose: 30 mg Lorazepam (Ativan) 1 mg IVPUSH ONETIME ONE Stop: 11/27/16 19:43 Last Admin: 11/27/16 20:20 Dose: 1 mg Pantoprazole Sodium (Protonix Iv) 40 mg IVPUSH DAILY [facility] Last Admin: 11/28/16 08:24 Dose: 40 mg *Q Meaningful Use (DIS) - VTE *Q VTE Criteria *Q: - Stroke *Q Stroke Criteria *Q: - AMI *Q AMI Criteria *Q:
== END 2016-11-29 12:15 | disposition home or self-care (01) | DRG 203 ==
LOC: JP.ED 16:11 → JP.2SS 19:49
PROVIDERS: ADMIT Internal Medicine; ATTEND Internal Medicine
DX: J20.9 Acute bronchitis, unspecified (principal); R50.9 Fever, unspecified; R55 Syncope and collapse; F41.9 Anxiety disorder, unspecified; H54.7 Unspecified visual loss; Z87.891 Personal history of nicotine dependence; F41.0 Panic disorder [episodic paroxysmal anxiety]; E66.9 Obesity, unspecified; Z68.31 Body mass index [BMI] 31.0-31.9, adult; C50.912 Malignant neoplasm of unspecified site of left female breast; S21.002A Unspecified open wound of left breast, initial encounter
CPT/HCPCS: 36415; 71020; 71020-26; 80048; 80053; 81001; 83605; 85025; 85027; 86140; 87081; 87430; 96361; 96374; 96375; 99285-25; A9270-GY; C9113; J0456; J0696; J1642; J1885; J2060; J7040; J7050; J8540

== ENCOUNTER 2016-11-30 17:21 | Emergency (ER) | payer MEDICAID ==
[2016-11-30] MEDS ORDERED: Sodium Chloride 0.9% 1,000 ML IV SCH (19:15)
[2016-11-30] MEDS ORDERED: Acetaminophen 500 MG Tab PO ONE (19:19)
--- NOTE | 2016-11-30 19:43 | EDM.PDOC ---
ED HPI GENERAL MEDICAL PROBLEM - General Chief Complaint: Fever Stated Complaint: FEVER;ILLNESS Time Seen by Provider: 11/30/16 18:35 Source of Information: Reports: Patient History Limitations: Reports: No Limitations - History of Present Illness INITIAL COMMENTS - FREE TEXT/NARRATIVE: Sybil presents today with complaints of fever, cough, flushing of body and feeling tired. She was recently discharged from [facility] yesterday on 11/29/2016. She was admitted and treated for fever. 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 Psychiatric History: Reports: Anxiety, Panic Attack Endocrine/Metabolic History: Reports: Obesity/BMI 30+ Oncologic (Cancer) History: Reports: Breast - Infectious Disease History Infectious Disease History: Reports: Chicken Pox - Past Surgical History HEENT Surgical History: Reports: Other (See Below) Other HEENT Surgeries/Procedures: Lazy eye surgery Endocrine Surgical History: Reports: None Musculoskeletal Surgical History: Reports: None Oncologic Surgical History: Reports: Biopsy of Breast Social & Family History - Tobacco Use Smoking Status *Q: Former Smoker Years of Tobacco use: 19 Packs/Tins Daily: 1 Used Tobacco, but Quit: No Month Tobacco Last Used: October Second Hand Smoke Exposure: No - Caffeine Use Caffeine Use: Reports: None - Alcohol Use Days Per Week of Alcohol Use: 2 Number of Drinks Per Day: 3 Total Drinks Per Week: 6 - Recreational Drug Use Recreational Drug Use: No - Living Situation & Occupation Living situation: Reports: Occupation: Disabled ( to [employer], no children , lives in [place], [place].) ED ROS GENERAL - Review of Systems Review Of Systems: See Below Constitutional: Reports: Fever, Chills, Malaise, Fatigue HEENT: Reports: No Symptoms Respiratory: Reports: Cough. Denies: Shortness of Breath, Wheezing, Pleuritic Chest Pain, Sputum, Hemoptysis Cardiovascular: Denies: Chest Pain, Blood Pressure Problem, Dyspnea on Exertion , Edema, Lightheadedness, Orthopnea, Palpitations, PND, Syncope Endocrine: Reports: Fatigue, Polyuria, Other (She reports increase in oral fluids along with increase in urination. ) GI/Abdominal: Reports: No Symptoms : Reports: Frequency. Denies: Discharge, Dysuria, Flank Pain, Hematuria, Pain , Urgency, Urinary Retention Musculoskeletal: Reports: No Symptoms Skin: Reports: Other (Flushing of skin to entire body, malignancy/lesion to left breast. ) Neurological: Reports: Headache. Denies: Confusion, Dizziness, Numbness, Syncope, Tingling, Weakness, Change in Speech, Gait Disturbance Psychiatric: Reports: No Symptoms Hematologic/Lymphatic: Reports: No Symptoms Immunologic: Reports: No Symptoms ED EXAM, GENERAL - Physical Exam Exam: See Below Free Text/Narrative:: Sybil is a 41 year old female presenting with fever of 101.2 after hospital discharge on 11/29/2016. Exam Limited By: No Limitations General Appearance: Alert, WD/WN, No Apparent Distress Eye Exam: Bilateral Eye: Normal Inspection, PERRL Ears: Normal External Exam, Normal Canal, Hearing Grossly Normal, Normal TMs Ear Exam: Bilateral Ear: Auricle Normal, Canal Normal, TM normal Nose: Normal Inspection, Normal Mucosa, No Blood Throat/Mouth: Normal Inspection, Normal Lips, Normal Teeth, Normal Gums, Normal Oropharynx, Normal Voice, No Airway Compromise Head: Atraumatic, Normocephalic Neck: Normal Inspection, Supple, Non-Tender, Full Range of Motion Respiratory/Chest: No Respiratory Distress, Lungs Clear, Normal Breath Sounds, No Accessory Muscle Use, Chest Non-Tender Cardiovascular: Normal Peripheral Pulses, Regular Rate, Rhythm, No Edema, No Gallop, No Murmur Peripheral Pulses: 2+: Radial (L), Radial (R), Dorsalis Pedis (L), Dorsalis Pedis (R) GI/Abdominal: Normal Bowel Sounds, Soft, Non-Tender, No Organomegaly, No Distention, No Abnormal Bruit, No Mass Back Exam: Normal Inspection, Full Range of Motion. No: CVA Tenderness (R), CVA Tenderness (L) Extremities: Normal Inspection, Normal Range of Motion, Non-Tender, No Pedal Edema, Normal Capillary Refill Neurological: Alert, Oriented, CN II-XII Intact, Normal Cognition, Normal Gait, No Motor/Sensory Deficits Psychiatric: Normal Affect, Normal Mood Skin Exam: Dry, Wound/Incision, Other (Skin flushed to entire body. Chronic wound to left breast has no erythema, does have purulent drainage in small amount. ) Lymphatic: No Adenopathy EKG INTERPRETATION EKG Date: 11/30/16 Rhythm: Other (Sinus tachycardia) [place]: Normal P-Wave: Present QRS: Normal ST-T: Normal QT: Normal Course - Vital Signs Last Recorded V/S: Last Vital Signs Temp 38.6 C H 11/30/16 20:44 Pulse 110 H 11/30/16 20:44 Resp 18 11/30/16 20:44 BP 123/53 L 11/30/16 20:44 Pulse Ox 93 L 11/30/16 20:44 - Orders/Labs/Meds Orders: Active Orders 24 hr Category Date Time Status EKG Documentation Completion [RC] ASDIRECTED Care 11/30/16 19:12 Active Chest 2V [CR] Stat Exams 11/30/16 19:05 Taken CULTURE BLOOD [] Urgent Lab 11/30/16 19:24 Received CULTURE BLOOD [] Urgent Lab 11/30/16 19:34 Received CULTURE STREP A CONFIRMATION [] Stat Lab 11/30/16 19:56 Results CULTURE URINE [] Stat Lab 11/30/16 19:56 Received CULTURE WOUND + SMEAR [] Stat Lab 11/30/16 19:56 Results STREP SCRN A RAPID W CULT CONF [] Stat Lab 11/30/16 19:56 Results Sodium Chloride 0.9% [Normal Saline] 1,000 ml Med 11/30/16 19:15 Active IV ASDIRECTED Blood Culture x2 Reflex Set [OM.PC] Urgent Oth 11/30/16 19:05 Ordered EKG 12 Lead [EK] Routine Ther 11/30/16 19:11 Ordered Medication Orders Sodium Chloride (Normal Saline) 1,000 mls @ 500 mls/hr IV ASDIRECTED CY Last Admin: 11/30/16 19:44 Dose: 500 mls/hr Labs: Laboratory Tests 11/30/16 11/30/16 11/30/16 Range/Units 19:24 19:34 19:34 WBC 12.0 H (4.5-11.0) K/uL RBC 2.73 L (3.30-5.50) M/uL Hgb 8.4 L (12.0-15.0) g/dL Hct 25.9 L (36.0-48.0) % MCV 95 (80-98) fL MCH 31 (27-31) pg MCHC 32 (32-36) % Plt Count 337 (150-400) K/uL Add Manual Diff Yes Neutrophils % (Manual) 67 H (36-66) % Band Neutrophils % 17 H (5-11) % Lymphocytes % (Manual) 11 L (24-44) % Monocytes % (Manual) 5 (2-6) % Polychromasia Sodium 137 L (140-148) mmol/L Potassium 3.5 L (3.6-5.2) mmol/L Chloride 101 (100-108) mmol/L Carbon Dioxide 29 (21-32) mmol/L Anion Gap 10.5 (5.0-14.0) mmol/L BUN 20 H D (7-18) mg/dL Creatinine 1.0 (0.6-1.0) mg/dL Est Cr Clr Drug Dosing 70.71 mL/min Estimated GFR (MDRD) > 60 (>60) Glucose 87 (74-106) mg/dL Calcium 8.5 (8.5-10.1) mg/dL Total Bilirubin 0.3 (0.2-1.0) mg/dL AST 23 (15-37) U/L ALT 32 (12-78) U/L Alkaline Phosphatase 42 L (46-116) U/L C-Reactive Protein 0.82 H (0.0-0.3) mg/dL Total Protein 6.3 L (6.4-8.2) g/dL Albumin 2.9 L (3.4-5.0) g/dL Globulin 3.4 (2.3-3.5) g/dL Albumin/Globulin Ratio 0.9 L (1.2-2.2) Urine Color Urine Appearance Urine pH (4.5-8.0) Ur Specific [place] (1.008-1.030) Urine Protein (NEGATIVE) mg/dL Urine Glucose (UA) (NEGATIVE) mg/dL Urine Ketones (NEGATIVE) mg/dL Urine Occult Blood (NEGATIVE) Urine Nitrite (NEGATIVE) Urine Bilirubin (NEGATIVE) Urine Urobilinogen (NORMAL) mg/dL Ur Leukocyte Esterase (NEGATIVE) Urine RBC (0-5) Urine WBC (0-5) Ur Epithelial Cells Amorphous Sediment Urine Bacteria Urine Mucus 11/30/16 Range/Units 19:56 WBC (4.5-11.0) K/uL RBC (3.30-5.50) M/uL Hgb (12.0-15.0) g/dL Hct (36.0-48.0) % MCV (80-98) fL MCH (27-31) pg MCHC (32-36) % Plt Count (150-400) K/uL Add Manual Diff Neutrophils % (Manual) (36-66) % Band Neutrophils % (5-11) % Lymphocytes % (Manual) (24-44) % Monocytes % (Manual) (2-6) % Polychromasia Sodium (140-148) mmol/L Potassium (3.6-5.2) mmol/L Chloride (100-108) mmol/L Carbon Dioxide (21-32) mmol/L Anion Gap (5.0-14.0) mmol/L BUN (7-18) mg/dL Creatinine (0.6-1.0) mg/dL Est Cr Clr Drug Dosing mL/min Estimated GFR (MDRD) (>60) Glucose (74-106) mg/dL Calcium (8.5-10.1) mg/dL Total Bilirubin (0.2-1.0) mg/dL AST (15-37) U/L ALT (12-78) U/L Alkaline Phosphatase (46-116) U/L C-Reactive Protein (0.0-0.3) mg/dL Total Protein (6.4-8.2) g/dL Albumin (3.4-5.0) g/dL Globulin (2.3-3.5) g/dL Albumin/Globulin Ratio (1.2-2.2) Urine Color Yellow Urine Appearance Clear Urine pH 5.0 (4.5-8.0) Ur Specific [place] 1.020 (1.008-1.030) Urine Protein Negative (NEGATIVE) mg/dL Urine Glucose (UA) Normal (NEGATIVE) mg/dL Urine Ketones Negative (NEGATIVE) mg/dL Urine Occult Blood Negative (NEGATIVE) Urine Nitrite Negative (NEGATIVE) Urine Bilirubin Negative (NEGATIVE) Urine Urobilinogen Normal (NORMAL) mg/dL Ur Leukocyte Esterase Negative (NEGATIVE) Urine RBC Not seen (0-5) Urine WBC 0-5 (0-5) Ur Epithelial Cells Moderate Amorphous Sediment Not seen Urine Bacteria Few Urine Mucus Moderate Meds: Medications Generic Name Dose Route Start Last Admin Trade Name Freq PRN Reason Stop Dose Admin Sodium Chloride 1,000 mls @ 500 mls/hr 11/30/16 19:15 11/30/16 19:44 Normal Saline IV 500 mls/hr ASDIRECTED CY Administration Discontinued Medications Generic Name Dose Route Start Last Admin Trade Name Freq PRN Reason Stop Dose Admin Acetaminophen 1,000 mg 11/30/16 19:19 11/30/16 19:44 Tylenol Extra Strength PO 11/30/16 19:20 1,000 mg ONETIME ONE Administration Cefazolin Sodium/Dextrose 2 gm 50 mls @ 100 mls/hr 11/30/16 21:12 11/30/16 21 :18 / Premix IV 11/30/16 21:41 100 mls/hr ONETIME ONE Administration - Radiology Interpretation Free Text/Narrative:: Chest x-ray wet read, no acute findings. - Re-Assessments/Exams Free Text/Narrative Re-Assessment/Exam: 11/30/16 21:11 Patient ER stay and lab work reviewed with Dr. Maria. She will be discharged to home and given IV ancef with keflex to take at home for wound infection. Departure - Departure Time of Disposition: 21:43 Disposition: Home, Self-Care 01 Condition: Fair Clinical Impression: Fever of unknown origin, Breast wound Fever Qualifiers: Fever type: due to other condition Qualified Code(s): R50.81 - Fever presenting with conditions classified elsewhere Breast cancer Qualifiers: Breast location: unspecified site of breast Estrogen receptor status: unspecified Patient sex: female Laterality: unspecified laterality Qualified Code(s): C50.919 - Malignant neoplasm of unspecified site of unspecified female breast - Discharge Information Instructions: Wound Infection, [id number] Referrals: Vineet Crane MD [Primary Care Provider] - Forms: ED Department Discharge Additional Instructions: Treatment in the ER today was for fever of unknown origin and chronic left breast wound secondary to left breast cancer and current chemotherapy. Complete azithromycin. You are being discharged to home after IV ancef 2 grams. You will also take cephalexin 500mg po four times a day for 10 days. It is a very good idea to take a probiotic (such as Florajen) to assist with maintaining normal callum within your intestine due to antibiotic use. Keep yourself well hydrated, rest and eat well. Good foods to eat if you were to develop diarrhea from antibiotic use are bananas, apples (apple sauce), rice and toast. She will follow up with Dr. Crane this week as scheduled or return earlier for issues or concerns. Use acetaminophen (tylenol) as needed for fever and pain. Return to the ER for worsening of fever, chills, change in level of consciousness, confusion, vomiting or any other issues/concerns. Today we completed a two view chest x-ray - this was negative for acute findings. We also completed a strep, urine, blood and left breast wound cultures. The culture results will be back in 72 hours. You will be notified if you need to take a different antibiotic (telephone or letter). You can also ask Dr. Crane to look up results with your clinic visit. All of your lab work was compared to your lab work completed during your most recent hospital stay and was found to not have any significant findings. I also suggest telephoning your oncologist to inform him of your hospitalization , lab work and current medications in case they would like to see you as well. - My Orders Last 24 Hours: My Active Orders 11/30/16 19:05 Chest 2V [CR] Stat Blood Culture x2 Reflex Set [OM.PC] Urgent 11/30/16 19:11 EKG 12 Lead [EK] Routine 11/30/16 19:12 EKG Documentation Completion [RC] ASDIRECTED 11/30/16 19:15 Sodium Chloride 0.9% [Normal Saline] 1,000 ml IV ASDIRECTED 11/30/16 19:24 CULTURE BLOOD [BC] Urgent 11/30/16 19:34 CULTURE BLOOD [BC] Urgent 11/30/16 19:56 CULTURE STREP A CONFIRMATION [RM] Stat CULTURE URINE [RM] Stat CULTURE WOUND + SMEAR [RM] Stat STREP SCRN A RAPID W CULT CONF [RM] Stat - Assessment/Plan Last 24 Hours: My Active Orders 11/30/16 19:05 Chest 2V [CR] Stat Blood Culture x2 Reflex Set [OM.PC] Urgent 11/30/16 19:11 EKG 12 Lead [EK] Routine 11/30/16 19:12 EKG Documentation Completion [RC] ASDIRECTED 11/30/16 19:15 Sodium Chloride 0.9% [Normal Saline] 1,000 ml IV ASDIRECTED 11/30/16 19:24 CULTURE BLOOD [BC] Urgent 11/30/16 19:34 CULTURE BLOOD [BC] Urgent 11/30/16 19:56 CULTURE STREP A CONFIRMATION [RM] Stat CULTURE URINE [RM] Stat CULTURE WOUND + SMEAR [RM] Stat STREP SCRN A RAPID W CULT CONF [RM] Stat Assessment:: Fever of unknown origin Possible chronic wound infection to left breast Plan: Sybil will be discharged to home after IV ancef 2 grams. She will also take cephalexin 500mg po QID for 10 days. She will follow up with Dr. Crane this week as scheduled or return earlier for issues or concerns. Review of fever management completed. Instructed patient to stay well hydrated. Return to the ER for worsening of fever, chills, change in level of consciousness, confusion, vomiting or any other issues/concerns.
[2016-11-30 20:44] VITALS: BP 123/53
[2016-11-30] MEDS ORDERED: ceFAZolin 2 GM in Premix Bag 1 BAG IV ONE (21:12)
--- NOTE | 2016-12-01 14:10 | CR ---
Chest 2V INDICATION: Cough, fever FINDINGS: Comparison 11/27/2016. Right Port-A-Cath in place with tip in the mid/upper SVC. Chest other doty negative.
== END 2016-11-30 22:11 | disposition home or self-care (01) ==
LOC: JP.ED 17:21
DX: C50.912 Malignant neoplasm of unspecified site of left female breast (principal); R50.81 Fever presenting with conditions classified elsewhere; H54.7 Unspecified visual loss; E66.9 Obesity, unspecified; Z98.890 Other specified postprocedural states; Z79.891 Long term (current) use of opiate analgesic
CPT/HCPCS: 36415; 71020; 80053; 81001; 85025; 86140; 87040; 87070; 87081; 87086; 87205; 87430; 93005; 96361; 96365; 99284; A9270; J0690; J1642; J7040; 87077; 87186

== ENCOUNTER 2017-05-04 06:00 | Inpatient (IN) | payer MEDICAID ==
[2017-05-04] MEDS ORDERED: Isosulfan Blue 5 ML SDV ONE (06:45)
[2017-05-04] MEDS: Sodium Chloride 0.9% 1,000 ML IV SCH ×3 (07:23→20:25)
[2017-05-04] MEDS ORDERED: ceFAZolin 2 GM in Premix Bag 1 BAG IV ONE (07:30)
[2017-05-04] MEDS ORDERED: Rocuronium 50 MG/5 ML Vial ONE (07:33)
[2017-05-04] MEDS ORDERED: Midazolam 1 MG/ML 2 ML SDV ONE (07:33)
[2017-05-04] MEDS ORDERED: Succinylcholine 200 MG/10 ML MDV ONE (07:33)
[2017-05-04] MEDS ORDERED: Propofol 200 MG/20 ML SDV ONE (07:33)
[2017-05-04] MEDS ORDERED: Glycopyrrolate 0.2 MG/ML 5 ML MDV ONE (07:33)
[2017-05-04] MEDS ORDERED: Dexamethasone 4 MG/ML SDV ONE (07:33)
[2017-05-04] MEDS ORDERED: Neostigmine Methylsulfate 1 MG/ML 5 ML Syringe ONE (07:33)
[2017-05-04] MEDS ORDERED: Ondansetron 4 MG/2 ML SDV ONE (07:33)
[2017-05-04] MEDS ORDERED: Scopolamine 1.5 MG Transdermal Patch ONE (07:39)
[2017-05-04] MEDS ORDERED: hydrOXYzine HCl 100 MG/2 ML SDV IM PRN (08:02)
[2017-05-04] MEDS ORDERED: diphenhydrAMINE 50 MG/ML SDV IVPUSH PRN (08:02)
[2017-05-04] MEDS ORDERED: Polyethylene Glycol 3350 Powder 17 GM Packet PO PRN (08:02)
[2017-05-04] MEDS ORDERED: Benzocaine/Cetylpyridinium/Menthol Lozenge MUCMEM PRN (08:02)
[2017-05-04] MEDS ORDERED: Docusate Sodium 100 MG Cap PO PRN (08:02)
[2017-05-04] MEDS ORDERED: Bisacodyl 5 MG Tab PO PRN (08:02)
[2017-05-04] MEDS ORDERED: fentaNYL/Normal Saline 600 MCG/30 ML PCA Vial IV PRN (08:15)
[2017-05-04] MEDS ORDERED: Naloxone 0.4 MG/ML SDV IV PRN (08:17)
[2017-05-04] MEDS ORDERED: fentaNYL 250 MCG/5 ML SDV ONE (08:45)
[2017-05-04] MEDS ORDERED: Bupivacaine 0.5%/EPINEPHrine 1:200,000 50 ML MDV ONE (09:58)
[2017-05-04] MEDS ORDERED: Ketorolac 60 MG/2 ML SDV ONE (09:58)
[2017-05-05] MEDS: Zolpidem 5 MG Tab PO PRN ×2 (00:04→22:28)
[2017-05-05] MEDS: Sodium Chloride 0.9% 1,000 ML IV SCH ×2 (06:03→23:25)
--- NOTE | 2017-05-05 14:14 | PN ---
DATE OF SERVICE: 05/05/2017 SUBJECTIVE: The patient doing well. Pain is well controlled. No nausea, vomiting, shortness of breath, or chest pain. OBJECTIVE: VITAL SIGNS: Stable. She is afebrile. CARDIOVASCULAR: Regular rhythm and rate. RESPIRATORY: Lungs are clear to consultation bilaterally. Dressings are intact. ASSESSMENT: Status post mastectomy. PLAN: We will saline lock her IV. Work on diet and activity today. 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 Anticipated discharge is approximately 48 hours. Vineet Crane MD /[id number]
--- NOTE | 2017-05-05 15:05 | OR ---
DATE OF PROCEDURE: 05/04/2017 PROCEDURE: Modified radical mastectomy with sentinel node resection, nodes x3. COMPLICATION: None. INDUSTRIAL RETROFIT DESIGNER: None. PATHOLOGY: 1. Left breast with single stitch, marked superior, double stitch marked lateral. 2. [place] node #1, node #2, and node #3. COMPLICATIONS: None. INDUSTRIAL RETROFIT DESIGNER: None. ANESTHESIA: General/local. INDICATIONS: A pleasant 41-year-old female with a breast cancer eroding to the skin, who has completed neoadjuvant chemotherapy and requiring definitive management. FINDINGS: Three node negative frozen section. PROCEDURE IN DETAIL: The patient was placed in supine position. The chest was prepped and draped. Dissection was commenced with the inferior aspect of the breast in an elliptical fashion. The skin excision would be extensive on this patient, due to the involvement of the skin with the breast cancer, as was biopsy-proven several months ago. This elliptical incision was in a standard teardrop fashion. A 15 blade was used to dissect the skin, and electrocautery was used to mobilize this down. Using standard techniques, the breast superior and inferior flaps were used by elevating the skin and dissection with leaving a small amount of fat for viability, however, removing as much as possible. This was carried down to the muscular layer. The pectoralis muscle was not removed. This dissection then continued from medial to lateral over the next approximately 20 to 25 minutes. Bleeding was controlled with a combination of electrocautery and/or suture-ligation. Once the tail of Rasha[place] was encountered, the transection of the breast was completed in the junction of the axilla. Using the [place] counter, the sentinel node was identified medial and slightly deeper, which was typical. This sentinel node had a gamma count of 485. Once this was removed via clips and suture-ligation, the background was less than 10%. Nonetheless, in this area, there were two additional nodes in the cluster, most likely in the same chain. Therefore, these were resected and sent for frozen section. These were also suture-ligated and/or clipped with metallic clips. All three nodes were found to be benign per pathology. Reconstruction was then commenced. Two nicks were created in the inferior aspect of the skin, and two 10 flat Tony-Alvarado drains would be placed. The lateral one would be placed in the axilla, and the medial one would be placed beneath the incision. Due to the large amount of skin removed, due to the positive aspect of the malignancy, there was a moderate amount of tension on the skin. Therefore, the skin would be closed with two layers of 2-0 Vicryl suture with claudette and then reinforced by horizontal mattress sutures. Dressings were applied. The patient tolerated the procedure well. Vineet Crane MD /[id number]
--- NOTE | 2017-05-05 15:17 | OR ---
DATE OF PROCEDURE: 05/04/2017 PROCEDURE: 1. Injection of radioactive isotope, left breast due to breast malignancy ([id number]). 2. Injection of Lymphazurin blue to identify sentinel node, left axilla ([id number]). COMPLICATIONS: None. ENAMEL MACHINE OPERATOR: None. ANESTHETIC: None. INDICATIONS: This is a pleasant 41-year-old female with malignant breast cancer requiring identification of sentinel node. Risks, benefits, alternatives, and limitations including but not limited to infection, bleeding, and allergic reaction were explained to the patient. They wished to proceed. PROCEDURE IN DETAIL: The patient was placed in supine position. The technetium-99m would be injected in three subcutaneous layers in the medial aspect of the breast. This was superior and closer to the axilla, due to the scarring of the breast, due to chemotherapy and radiation. Once technetium-99m was injected, Lymphazurin blue was injected in 3 mm total, with 1 mm increments in a wheal/fan fashion. This was massaged slightly into the breast. Dressings were applied and the patient was sent for mastectomy. Vineet Crane MD /[id number]
[2017-05-06] MEDS ORDERED: fentaNYL 100 MCG/2 ML SDV IVPUSH PRN (07:58)
[2017-05-06] MEDS ORDERED: Acetaminophen/HYDROcodone 325-5 MG Tab PO PRN (07:58)
[2017-05-06] MEDS: Ibuprofen 600 MG Tab PO SCH ×2 (09:07→17:04)
[2017-05-06] MEDS ORDERED: Loperamide 2 MG Cap PO ONE (13:30)
[2017-05-06] MEDS: Loperamide 2 MG Cap PO PRN ×2 (19:21→21:49)
[2017-05-06] MEDS: ALPRAZolam 0.5 MG Tab PO SCH (21:49)
[2017-05-07] MEDS: Ibuprofen 600 MG Tab PO SCH ×2 (04:01→08:18)
[2017-05-07 07:52] VITALS: BP 105/82
[2017-05-07] MEDS: ALPRAZolam 0.5 MG Tab PO SCH (08:18)
--- NOTE | 2017-05-07 17:22 | DISCH ---
DISCHARGE DIAGNOSIS: Status post modified radical mastectomy with sentinel node biopsy. COMPLICATIONS DURING THIS HOSPITALIZATION: None. FOLLOWUP: With Surgery in 7 to 14 days. ACTIVITY: No lifting greater than 10 pounds. DISCHARGE MEDICATIONS: Please see MAR, but include Xanax for anxiety and [place] for pain. SUMMARY OF HOSPITAL COURSE: A pleasant 41-year-old female who underwent a modified radical mastectomy due to breast carcinoma. The patient had sentinel node biopsies during this process, and they were found to be benign. On postoperative day 1, her pain was well controlled on the [employer], tolerating diet. On postoperative day 2, this improved, and the patient was subsequently switched on postoperative day 3 to p.o. pain medications. On the day of discharge, she was well controlled on ibuprofen. No nausea, vomiting, shortness of breath, or chest pain. The incision was healing well, and the patient would prefer to be discharged.
--- NOTE | 2017-05-07 17:25 | PN ---
DATE OF SERVICE: 05/07/2017 SUBJECTIVE: The patient is doing very well today. Pain is well controlled with p.o. pain medications. No nausea, vomiting, shortness of breath, or chest pain. OBJECTIVE: VITAL SIGNS: Stable. CARDIOVASCULAR: Regular rhythm and rate. RESPIRATORY: Lungs are clear to consultation bilaterally. CHEST: Incision healing well. No signs of cellulitis, infection, or wound separation. ASSESSMENT AND PLAN: Status post mastectomy, modified radical. The patient will be discharged today. Please see discharge summary for further details. Vineet Crane MD /[id number]
--- NOTE | 2017-06-04 18:14 | PN ---
DATE OF SERVICE: 05/06/2017 SUBJECTIVE: The patient is doing well. Pain is well controlled. No nausea, vomiting, shortness of breath, or chest pain. OBJECTIVE: VITAL SIGNS: Stable. Temperature 97.2, blood pressure 120/71, pulse 78, respirations 15. HEENT: Pupils are equal. NECK: Supple. Dressings intact. Laboratory results did not show any abnormalities. ASSESSMENT AND PLAN: Status post mastectomy. We will continue working on diet, activity, and work toward discharge. The patient understands the plan for today. Vineet Crane MD /[id number]
== END 2017-05-07 10:13 | disposition home or self-care (01) | DRG 583 ==
LOC: JP.SDS 06:00 → JP.SDSSCHI 06:00 → EDSTATUS 07:30 → JP.MS 11:00
PROVIDERS: ADMIT Surgery; ATTEND Surgery
PROC: 0HTU0ZZ Resection of Left Breast, Open Approach (ICD-10-PCS; principal; 2017-05-04)
PROC: 07T60ZZ Resection of Left Axillary Lymphatic, Open Approach (ICD-10-PCS; 2017-05-04)
PROC: 3E0W3HZ Introduction of Radioactive Substance into Lymphatics, Percutaneous Approach (ICD-10-PCS; 2017-05-04)
DX: C50.912 Malignant neoplasm of unspecified site of left female breast (principal); Z92.21 Personal history of antineoplastic chemotherapy; Z92.3 Personal history of irradiation; F41.9 Anxiety disorder, unspecified; Z17.1 Estrogen receptor negative status [ER-]
CPT/HCPCS: 36415; 80048; 85025; 86850; 86900; 86901; 86920; 86922; 88307; 88331; 88334; 88341; 88342; 88360; 88361; 94762; A9270-GY; J0330; J0690; J1100; J1642; J1885; J2250; J2405; J2704; J2710; J3010; J3410; J7040; Q9968

== ENCOUNTER 2017-06-01 12:07 | Emergency (ER) | payer MEDICAID ==
--- NOTE | 2017-06-01 13:26 | EDM.PDOC ---
ED HPI GENERAL MEDICAL PROBLEM - General Chief Complaint: General Stated Complaint: LEG EDEMA, RIGHT WORSE Time Seen by Provider: 06/01/17 13:00 Source of Information: Reports: Patient, Provider History Limitations: Reports: No Limitations - History of Present Illness INITIAL COMMENTS - FREE TEXT/NARRATIVE: 41-year-old female with breast cancer, recently underwent a mastectomy and is getting chemotherapy has been spending a lot of time with her legs dependent over the past week, traveling in the car and has developed some swelling and discomfort. She discussed this with her provider and he sent her into the emergency room for ultrasound to rule out DVT. She has no shortness of breath, fever, chest pains and otherwise feels "pretty good". Onset: Gradual (Over the past several days) Location: Reports: Lower Extremity, Left, Lower Extremity, Right Severity: Moderate Associated Symptoms: Denies: Chest Pain, Cough, Nausea/Vomiting, Shortness of Breath, Syncope, Weakness Bilateral Feet Pain Score (Numeric/FACES): 8 - Related Data Allergies Allergy/AdvReac Type Severity Reaction Status Date / Time No Known Allergies Allergy Verified 06/01/17 12:56 Home Meds: Home Meds Magnesium 250 mg PO BID 02/24/17 [History] ALPRAZolam [Alprazolam] 0.5 mg PO 04/30/17 [History] ALPRAZolam [Xanax] 0.5 mg PO Q12H PRN #20 tablet 05/07/17 [Rx] Potassium Chloride 20 meq PO DAILY 06/01/17 [History] Past Medical History HEENT History: Reports: Impaired Vision Respiratory History: Reports: SOB Other Respiratory History: SOB WITH ACTIVITY Gastrointestinal History: Reports: Chronic Diarrhea 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: , 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 Neurological History: Reports: Headaches, Chronic Psychiatric History: Reports: Anxiety, Panic Attack Endocrine/Metabolic History: Reports: Obesity/BMI 30+ Hematologic History: Reports: Blood Transfusion(s) Oncologic (Cancer) History: Reports: Breast Dermatologic History: Reports: None - Infectious Disease History Infectious Disease History: Reports: Chicken Pox - Past Surgical History Head Surgeries/Procedures: Reports: None HEENT Surgical History: Reports: Other (See Below) Other HEENT Surgeries/Procedures: Lazy eye surgery GI Surgical History: Reports: None Female Surgical History: Reports: Mastectomy Endocrine Surgical History: Reports: None Musculoskeletal Surgical History: Reports: None Oncologic Surgical History: Reports: Biopsy of Breast Dermatological Surgical History: Reports: None Social & Family History - Family History Family Medical History: Noncontributory - Tobacco Use Smoking Status *Q: Never Smoker Years of Tobacco use: 18 Packs/Tins Daily: 1 Used Tobacco, but Quit: Yes Month Tobacco Last Used: 2016 Second Hand Smoke Exposure: No - Caffeine Use Caffeine Use: Reports: Soda - Alcohol Use Days Per Week of Alcohol Use: 2 Number of Drinks Per Day: 2 Total Drinks Per Week: 4 - Recreational Drug Use Recreational Drug Use: No - Living Situation & Occupation Living situation: Reports: Occupation: Disabled ( to [employer], no children , lives in [facility]) ED ROS GENERAL - Review of Systems Review Of Systems: See Below Respiratory: Denies: Shortness of Breath (Some fatigue) Endocrine: Reports: Fatigue GI/Abdominal: Denies: Abdominal Pain, Nausea, Vomiting Musculoskeletal: Reports: Leg Pain Skin: Reports: No Symptoms Neurological: Denies: Dizziness, Headache Psychiatric: Reports: No Symptoms ED EXAM, GENERAL - Physical Exam Exam: See Below Exam Limited By: No Limitations General Appearance: Alert, No Apparent Distress Respiratory/Chest: No Respiratory Distress, Lungs Clear Cardiovascular: Regular Rate, Rhythm. No: Tachycardia Extremities: Other (Both lower extremities have diffuse edema from the knees through the feet, it is symmetric, and she has no palpation tenderness of the calf or popliteal areas.) Course - Vital Signs Last Recorded V/S: Last Vital Signs Temp 98.2 F 06/01/17 14:13 Pulse 87 06/01/17 14:13 Resp 14 06/01/17 14:13 BP 132/78 06/01/17 14:13 Pulse Ox 94 L 06/01/17 14:13 - Re-Assessments/Exams Free Text/Narrative Re-Assessment/Exam: 06/01/17 13:26 Venous ultrasounds of the lower extremities were ordered. 06/01/17 14:02 Venous ultrasound results are negative bilaterally. Patient was given a prescription for thigh-high compression stockings. She was encouraged to increase activity, avoid excessive salt intake and recheck as needed. Departure - Departure Time of Disposition: 14:16 Disposition: Home, Self-Care 01 Condition: Good Clinical Impression: Bilateral lower extremity edema Breast cancer Qualifiers: Breast location: unspecified site of breast Estrogen receptor status: unspecified Patient sex: female Laterality: unspecified laterality Qualified Code(s): C50.919 - Malignant neoplasm of unspecified site of unspecified female breast - Discharge Information Instructions: Peripheral Edema Referrals: PCP,None [Primary Care Provider] - Forms: ED Department Discharge Care Plan Goals: Wear compression stockings when able, especially if legs are dependent for extended periods of time. Increase activity as tolerated and return or recheck if concerns.
[2017-06-01 14:14] VITALS: BP 132/78
--- NOTE | 2017-06-01 14:15 | US ---
VL Duplex Lwr Ext Veins Comp HISTORY: Pain, swelling. FINDINGS: The deep veins of the lower extremities bilaterally demonstrate normal augmentation and com pressibility. No evidence for deep venous thrombosis. IMPRESSION: Normal bilateral lower extremity venous Doppler ultrasound.
== END 2017-06-01 14:17 | disposition home or self-care (01) ==
LOC: JP.ED 12:07
DX: R60.0 Localized edema (principal); C50.919 Malignant neoplasm of unspecified site of unspecified female breast; F41.0 Panic disorder [episodic paroxysmal anxiety]; Z87.891 Personal history of nicotine dependence; Z79.899 Other long term (current) drug therapy
CPT/HCPCS: 93970; 93970-26; 99284-25

== ENCOUNTER 2022-01-23 07:23 | Emergency (ER) | payer MEDICAID ==
[2022-01-23 07:45] VITALS: PULSE 107
[2022-01-23 09:14] LABS: ESTIMATED GFR 81 mL/min (>60)
[2022-01-23 09:21] LABS: TROPONIN I HIGH SENSITIVITY < 4.0 pg/mL (<=60.3)
[2022-01-23] MEDS ORDERED: Magnesium Sulfate/Water 2 GM in Premix Bag 1 BAG IV ONE (09:22)
[2022-01-23] MEDS ORDERED: Sodium Chloride 0.9% 10 ML Syringe FLUSH PRN (09:22)
[2022-01-23 12:03] VITALS: BP 108/64
== END 2022-01-23 12:42 | disposition home or self-care (01) ==
LOC: JP.ED 07:23
DX: R00.2 Palpitations (principal); E83.42 Hypomagnesemia; E66.9 Obesity, unspecified; Z68.36 Body mass index [BMI] 36.0-36.9, adult
CPT/HCPCS: 36415; 80048; 83735; 84443; 84484; 85025; 93005; 93225; 93226; 96365; 96366; 99285; J3475; J3490

== ENCOUNTER 2024-02-22 21:43 | Emergency (ER) | payer SELFPAY ==
[2024-02-22 22:41] LABS: BASOPHILS ABSOLUTE AUTO 0.05 K/uL (0.00-0.10); BASOPHILS PERCENT AUTO 0.7 % (0.1-1.3); EOSINOPHILS ABSOLUTE AUTO 0.29 K/uL (0.00-0.40); EOSINOPHILS PERCENT AUTO 4.3 % (0.0-5.4); HEMATOCRIT 41.4 % (34.3-46.0); HEMOGLOBIN 15.3 g/dL (11.2-15.5); IMMATURE GRAN ABSOLUTE AUTO 0.02 K/uL (0.00-0.23); IMMATURE GRAN PERCENT AUTO 0.3 % (0.0-0.7); LYMPHOCYTES PERCENT AUTO 36.8 % (11.4-47.7); MEAN CORPUSCULAR HEMOGLOBIN 35.8 pg (31.6-35.5); MONOCYTES PERCENT AUTO 10.3 % (3.3-12.6); NEUTROPHILS ABSOLUTE AUTO 3.24 K/uL (1.0-7.6); NEUTROPHILS PERCENT AUTO 47.6 % (40.0-78.1); PLATELET COUNT,PLT 215 K/uL (130-375); RED BLOOD CELL COUNT 4.27 M/uL (3.77-5.24); WHITE BLOOD CELL COUNT,WBC 6.8 K/uL (3.2-11.0)
[2024-02-22 22:55] LABS: ANION GAP 15.3 mmol/L (5.0-14.0); CALCIUM 10.5 mg/dL (8.5-10.1); CREATININE 0.9 mg/dL (0.6-1.0); EST CRCL DRUG DOSING (CG) 78.79 mL/min; POTASSIUM,K 3.3 mmol/L (3.6-5.2); TROPONIN I HIGH SENSITIVITY 4.3 pg/mL (<=60.3)
[2024-02-22] MEDS: Sodium Chloride 0.9% 1,000 ML IV SCH (23:00)
[2024-02-22 23:07] VITALS: PULSE 105
[2024-02-22] MEDS ORDERED: Propofol 200 MG/20 ML SDV ONE (23:26)
[2024-02-22] MEDS: Diltiazem 25 MG/5 ML SDV ONE (23:28)
[2024-02-22] MEDS: Diltiazem 25 MG/5 ML SDV IVPUSH ONE (23:37)
[2024-02-23] MEDS: Sodium Chloride 0.9% 1,000 ML IV SCH
[2024-02-23] MEDS: Apixaban 5 MG Tab PO ONE (00:21)
[2024-02-23] MEDS: Diltiazem 25 MG/5 ML SDV IVPUSH ONE (00:49)
[2024-02-23 01:53] VITALS: BP 106/67
== END 2024-02-23 02:23 | disposition home or self-care (01) ==
LOC: JP.ED 21:43
DX: I48.0 Paroxysmal atrial fibrillation (principal); I10 Essential (primary) hypertension; E66.9 Obesity, unspecified; Z79.899 Other long term (current) drug therapy; Z68.37 Body mass index [BMI] 37.0-37.9, adult
CPT/HCPCS: 36415; 80048; 84484; 85025; 92960; 93005; 96361; 96374; 96376; 99285; A9270; J2704; J3490; J7030

== ENCOUNTER 2024-12-13 06:20 | Emergency (ER) | payer SELFPAY ==
[2024-12-13] MEDS: Diltiazem 25 MG/5 ML SDV IVPUSH ONE (06:46)
[2024-12-13 06:50] LABS: PLATELET COUNT,PLT 196 K/uL (130-375); RED BLOOD CELL COUNT 4.37 M/uL (3.77-5.24); WHITE BLOOD CELL COUNT,WBC 6.0 K/uL (3.2-11.0)
[2024-12-13 06:58] LABS: BLOOD UREA NITROGEN,BUN 11.0 mg/dL (7-18); CHLORIDE,CL 105.0 mmol/L (100-108); EST CRCL DRUG DOSING (CG) 87.7 mL/min; ESTIMATED GFR 91.0 mL/min (>60); POTASSIUM,K 4.1 mmol/L (3.6-5.2); SODIUM,NA 141.0 mmol/L (140-148)
[2024-12-13 07:13] LABS: EOSINOPHILS ABSOLUTE MAN 0.24 K/uL (0.00-0.40); EOSINOPHILS PERCENT MAN 4 % (2-4); LYMPHOCYTES ABSOLUTE MAN 1.62 K/uL (0.8-3.3); LYMPHOCYTES PERCENT MAN 27 % (24-44); MONOCYTES ABSOLUTE MAN 0.54 K/uL (0.20-0.90); MONOCYTES PERCENT MAN 9 % (2-6); NEUTROPHILS ABSOLUTE MAN 3.60 K/uL (1.0-7.6); SEG NEUTROPHILS PERCENT MAN 60 % (36-66)
[2024-12-13 07:21] LABS: CARBON DIOXIDE,CO2 25.0 mmol/L (21-32); CREATININE 0.8 mg/dL (0.6-1.0); GLUCOSE RANDOM 136.0 mg/dL (74-106); TROPONIN I HIGH SENSITIVITY 7.6 pg/mL (<=60.3)
[2024-12-13 07:32] VITALS: BP 105/61; PULSE 78
== END 2024-12-13 07:54 | disposition home or self-care (01) ==
LOC: JP.ED 06:20
DX: I48.0 Paroxysmal atrial fibrillation (principal); I10 Essential (primary) hypertension; F17.200 Nicotine dependence, unspecified, uncomplicated; E66.9 Obesity, unspecified; Z79.899 Other long term (current) drug therapy; Z68.37 Body mass index [BMI] 37.0-37.9, adult
CPT/HCPCS: 36415; 80048; 83735; 84484; 85025; 93005; 96374; 99285; A9270; J3490